=== PATIENT | female | born 1990 | race Hispanic/Latino ===

== ENCOUNTER 2018-11-29 17:07 | Emergency (ER) | payer BC, MEDICAID ==
[2018-11-29] MEDS ORDERED: ONDANSETRON ODT 4 MG TAB ONE (17:46)
[2018-11-29 17:53] LABS: APPEARANCE,URINE Clear (CLEAR); BILIRUBIN,URINE Negative (NEGATIVE); COLOR,URINE Yellow (YELLOW); GLUCOSE, URINE (UA) Negative (NEGATIVE); KETONES,URINE Negative (NEGATIVE); LEUKOCYTE ESTERASE ,URINE Negative (NEGATIVE); NITRATE,URINE Negative (NEGATIVE); OCCULT BLOOD,URINE Negative (NEGATIVE); PH,URINE 8.5 (5.0-8.0); PROTEIN,URINE Negative (NEGATIVE); UROBILINOGEN,URINE 0.2 mg/dL (0.2-1.0)
[2018-11-29 17:55] LABS: HCG,QUAL RESULT NEGATIVE (NEGATIVE)
[2018-11-29 17:57] LABS: BASOPHILS % (AUTO) 0.5 % (0.0-5.0); EOSINOPHILS % (AUTO) 0.5 % (0.0-8.0); HEMATOCRIT 42.3 % (36-48); LYMPHOCYTES % (AUTO) 24.6 % (21.0-51.0); MEAN CORPUSCULAR HEMOGLOBIN 31.8 pg (27.0-33.0); MEAN CORPUSCULAR HGB CONC 34.7 g/dL (32.0-36.0); MEAN CORPUSCULAR VOLUME 91.5 fL (79-99); MONOCYTES % (AUTO) 8.9 % (3.0-13.0); NEUTROPHILS % (AUTO) 65.5 % (40.0-77.0); PLATELET COUNT (AUTO) 289 K/uL (130-400); RED BLOOD CELL COUNT(AUTO) 4.62 MIL/uL (4.00-5.50); RED CELL DISTRIBUTION WIDTH 13.3 % (11.0-15.5); WHITE BLOOD COUNT (AUTO) 7.8 K/uL (4.8-10.8)
[2018-11-29 18:05] LABS: CREATININE 0.7 mg/dL (0.5-1.5); POTASSIUM 3.9 mmol/L (3.5-5.1)
[2018-11-29 18:09] LABS: BILIRUBIN,TOTAL 0.2 mg/dL (0.2-1.0); TOTAL PROTEIN, SERUM 7.4 g/dL (6.0-8.3)
[2018-11-29] MEDS ORDERED: LIDOCAINE HCL 2% VISCOUS 15 ML UDCUP ONE (18:23)
[2018-11-29] MEDS ORDERED: MAG HYDROX/AL HYDROX/SIMETH ES 30 ML SUSP UDCUP ONE (18:23)
== END 2018-11-29 19:02 | disposition home or self-care (01) ==
LOC: EDH 17:07
DX: R10.13 Epigastric pain (principal); R19.7 Diarrhea, unspecified; R11.0 Nausea; Z98.51 Tubal ligation status
CPT/HCPCS: 36415; 80053; 81003; 81025; 83690; 85025

== ENCOUNTER 2019-02-03 17:24 | Emergency (ER) | payer BC, MEDICAID ==
[2019-02-03] MEDS ORDERED: TETRACAINE HCL 0.5% 4 ML OPHTH SOLN ONE (17:50)
[2019-02-03] MEDS ORDERED: GENTAMICIN SULFATE 0.3% 5ML DROPS ONE (18:00)
[2019-02-03] MEDS ORDERED: IBUPROFEN 600 MG TABLET ONE (18:00)
== END 2019-02-03 18:15 | disposition home or self-care (01) ==
LOC: EDH 17:24
DX: H18.821 Corneal disorder due to contact lens, right eye (principal)

== ENCOUNTER 2022-12-21 05:18 | Emergency (ER) | payer BC, MEDICAID ==
[~2022-12-21] VITALS: Ht 160 cm; Wt 71.7 kg
[2022-12-21] MEDS ORDERED: KETOROLAC 30MG VIAL (30MG/ML) IVP ONE (06:00)
[2022-12-21] MEDS ORDERED: DiphenhydrAMINE HCL 50 MG/ML VIAL IV ONE (06:00)
[2022-12-21] MEDS ORDERED: METOCLOPRAMIDE 10 MG/2 ML VIAL IVP ONE (06:00)
[2022-12-21] MEDS ORDERED: IBUP-1493 PO (06:41)
[2022-12-21 06:42] VITALS: BP 135/95
== END 2022-12-21 06:55 | disposition home or self-care (01) ==
LOC: EDH 05:18
DX: G43.909 Migraine, unspecified, not intractable, without status migrainosus (principal); F31.9 Bipolar disorder, unspecified
CPT/HCPCS: 99284; 96374; 96375; J1200; J1885; J2765